=== PATIENT | female | born 1970 | race Caucasian/White ===

== ENCOUNTER 2016-04-20 09:22 | Outpatient (RCR) | payer MEDICARE, BC ==
[2016-04-20 09:20] VITALS: BP 116/75
[~2016-04-20 09:22] MED LIST: EFFEXOR XR150 M1 PO; EFFEXOR XR75 M2 PO; LANSOPRAZOLE30 MG PO; PLAVIX 75MG TAB75 MG PO; PROPRANOLOL HYD20 MG PO; SYNTHROID137 MCG PO
[2016-04-20 11:50] VITALS: BP 117/83
[2016-05-18 10:00] VITALS: BP 107/64
[2016-05-18 12:41] VITALS: BP 120/75
[2016-06-15 09:50] VITALS: BP 118/81
[2016-06-15 12:40] VITALS: BP 127/89
[2016-07-13 08:45] VITALS: BP 111/73
[2016-07-13 12:10] VITALS: BP 116/77
== END 2016-07-19 | disposition home or self-care (01) ==
LOC: AMSURD 09:22
DX: M05.79 Rheumatoid arthritis with rheumatoid factor of multiple sites without organ or systems involvement (principal); M65.9 Synovitis and tenosynovitis, unspecified
CPT/HCPCS: J1745; J7050

== ENCOUNTER → 2016-07-13 | Outpatient (CLI) | payer MEDICARE, BC ==
[2016-06-15 12:40] VITALS: BP 127/89
== END ==
LOC: LAB 08:21
DX: M06.89 Other specified rheumatoid arthritis, multiple sites (principal); E03.4 Atrophy of thyroid (acquired); G43.909 Migraine, unspecified, not intractable, without status migrainosus; G47.33 Obstructive sleep apnea (adult) (pediatric); I48.91 Unspecified atrial fibrillation; E55.9 Vitamin D deficiency, unspecified; E11.9 Type 2 diabetes mellitus without complications

== ENCOUNTER 2016-08-10 09:55 | Outpatient (RCR) | payer MEDICARE, BC ==
[~2016-08-10] VITALS: Ht 154.9 cm; Wt 70.5 kg
[2016-08-10 10:05] VITALS: BP 124/85
[2016-08-10 12:15] VITALS: BP 120/87
[2016-09-14 09:45] VITALS: BP 117/67
[2016-09-14 12:14] VITALS: BP 119/80
[2016-10-12 10:00] VITALS: BP 118/79
[2016-10-12 12:06] VITALS: BP 148/93
== END 2016-11-08 | disposition home or self-care (01) ==
LOC: AMSURD
DX: M05.79 Rheumatoid arthritis with rheumatoid factor of multiple sites without organ or systems involvement (principal); M65.9 Synovitis and tenosynovitis, unspecified
CPT/HCPCS: J1745; J7050

== ENCOUNTER → 2016-08-24 | Outpatient (CLI) | payer MEDICARE, BC | LOC: LAB 10:21 | DX: E03.4 Atrophy of thyroid (acquired) (principal); M06.89 Other specified rheumatoid arthritis, multiple sites; G43.909 Migraine, unspecified, not intractable, without status migrainosus; G47.33 Obstructive sleep apnea (adult) (pediatric) ==

== ENCOUNTER → 2016-10-23 | Outpatient (CLI) | payer MEDICARE, BC ==
[2016-10-12 12:06] VITALS: BP 148/93
== END ==
LOC: RAD 10:42 → LAB 10:42
DX: R10.9 Unspecified abdominal pain (principal); R10.11 Right upper quadrant pain

== ENCOUNTER 2016-11-16 09:55 | Outpatient (RCR) | payer MEDICARE, BC ==
[~2016-11-16] VITALS: Ht 154.9 cm; Wt 70.5 kg
[2016-11-16 10:05] VITALS: BP 118/95
[2016-11-16 12:20] VITALS: BP 117/85
[2016-12-14 10:48] VITALS: BP 126/80
[2016-12-14 13:00] VITALS: BP 121/90
[2017-01-11 10:56] VITALS: BP 111/83
[2017-01-11 12:44] VITALS: BP 113/78
[2017-02-08 09:58] VITALS: BP 110/81
[2017-02-08 12:42] VITALS: BP 123/81
== END 2017-02-14 | disposition home or self-care (01) ==
LOC: AMSURD
DX: M05.79 Rheumatoid arthritis with rheumatoid factor of multiple sites without organ or systems involvement (principal); M65.9 Synovitis and tenosynovitis, unspecified
CPT/HCPCS: J1745; J7050; Q5102-ZB

== ENCOUNTER → 2016-12-14 | Outpatient (CLI) | payer MEDICARE, BC ==
[2016-11-16 12:20] VITALS: BP 117/85
== END ==
LOC: LAB 09:57
DX: E03.4 Atrophy of thyroid (acquired) (principal)

== ENCOUNTER 2017-03-08 12:24 | Outpatient (RCR) | payer MEDICARE, BC ==
[~2017-03-08] VITALS: Ht 154.9 cm; Wt 70.5 kg
[2017-03-08 13:04] VITALS: BP 130/80
[2017-04-05 10:13] VITALS: BP 127/96
[2017-04-05 12:01] VITALS: BP 122/83
[2017-05-03 11:02] VITALS: BP 112/73
[2017-05-03 11:05] VITALS: BP 134/92
[2017-05-31 10:22] VITALS: BP 128/81
[2017-05-31 12:20] VITALS: BP 119/87
== END 2017-06-06 | disposition home or self-care (01) ==
LOC: AMSURD
DX: M05.79 Rheumatoid arthritis with rheumatoid factor of multiple sites without organ or systems involvement (principal); M65.9 Synovitis and tenosynovitis, unspecified
CPT/HCPCS: J1644; J7050; Q5102-ZB

== ENCOUNTER → 2017-10-25 | Outpatient (CLI) | payer MEDICARE, BC ==
[~2017-10-25] VITALS: Ht 160 cm; Wt 65.9 kg
[~2017-10-25] MED LIST changes: +LEVOTHYROXINE175 MCG PO; +LOPRESSOR 225 MG/TAB PO
[2017-10-25 15:14] LABS: EOS % 0.5 % (1.0-5.0); HEMATOCRIT 43.9 % (37.0-47.0); HEMOGLOBIN 14.2 g/dL (12.5-16.0); MEAN CELL VOLUME 93 fl (78-100); MEAN CORPUSCULAR HEMOGLOBIN 30 pg (27-31); MEAN CORPUSCULAR HGB CONC 32 g/dL (33-37); MEAN PLATELET VOLUME 10.1 fl (7.4-10.4); MONO # 0.7 (0.20-0.80); NEU # 4.9 (1.40-6.50); PLATELET COUNT 312 K/mm3 (130-400); RED BLOOD COUNT 4.73 M/mm3 (4.10-5.30); RED CELL DISTRIBUTION WIDTH 12.8 % (11.5-14.5); WHITE BLOOD COUNT 7.6 K/mm3 (4.8-10.8)
[2017-10-25 15:27] LABS: ALBUMIN 4.2 g/dL (3.5-5.0); BUN/CREATININE RATIO 15.9 (6.0-26.0); CALCIUM 8.8 mg/dL (8.4-10.2); POTASSIUM 3.8 mmol/L (3.6-5.0); TOTAL BILIRUBIN 0.2 mg/dL (0.2-1.3); TOTAL PROTEIN 7.9 g/dL (6.3-8.2)
[2017-10-25 15:36] VITALS: BP 120/84
[2017-10-25 16:15] LABS: PH-URINE 5.5 (5.0 - 8.0); URINE APPEARANCE HAZY; URINE BILIRUBIN NEGATIVE (NEGATIVE); URINE BLOOD NEGATIVE (NEGATIVE); URINE COLOR YELLOW; URINE GLUCOSE NEGATIVE (NEGATIVE); URINE KETONE NEGATIVE (NEGATIVE); URINE LEUKOCYTE ESTERASE NEGATIVE (NEGATIVE); URINE NITRATE NEGATIVE (NEGATIVE); URINE PROTEIN(semi-quant) NEGATIVE (NEGATIVE); URINE UROBILINOGEN NORMAL (NORMAL); URINE WBC 0-1 /hpf (0-3)
== END ==
LOC: AMSURD 14:57
PROVIDERS: Internal Medicine
DX: Z01.812 Encounter for preprocedural laboratory examination (principal); K04.7 Periapical abscess without sinus; Z51.81 Encounter for therapeutic drug level monitoring; E03.4 Atrophy of thyroid (acquired)

== ENCOUNTER → 2018-09-08 | Outpatient (CLI) | payer MEDICARE, BC ==
[2017-10-25 15:36] VITALS: BP 120/84
[2018-09-08 16:57] LABS: EOS # 0.1 (0.04-0.40); EOS % 1.6 % (1.0-5.0); HEMATOCRIT 40.1 % (37.0-47.0); HEMOGLOBIN 12.9 g/dL (12.5-16.0); LYMPH# 2.2 (1.50-4.00); MEAN CELL VOLUME 91 fl (78-100); MEAN CORPUSCULAR HEMOGLOBIN 29 pg (27-31); MEAN CORPUSCULAR HGB CONC 32 g/dL (33-37); MEAN PLATELET VOLUME 9.3 fl (7.4-10.4); MONO # 0.8 (0.20-0.80); NEU # 5.7 (1.40-6.50); PLATELET COUNT 356 K/mm3 (130-400)
[2018-09-08 17:33] LABS: ALBUMIN 4.1 g/dL (3.5-5.0); CALCIUM 8.8 mg/dL (8.4-10.2); POTASSIUM 3.5 mmol/L (3.6-5.0); TOTAL BILIRUBIN 0.2 mg/dL (0.2-1.3)
== END ==
LOC: RAD 16:37
PROVIDERS: Internal Medicine
DX: G93.89 Other specified disorders of brain (principal); R55 Syncope and collapse; E03.9 Hypothyroidism, unspecified; M06.9 Rheumatoid arthritis, unspecified; I69.359 Hemiplegia and hemiparesis following cerebral infarction affecting unspecified side; G43.909 Migraine, unspecified, not intractable, without status migrainosus
CPT/HCPCS: A9585

== ENCOUNTER → 2019-01-02 | Outpatient (CLI) | payer MEDICARE, BC ==
[2017-10-25 15:36] VITALS: BP 120/84
== END ==
LOC: LAB 08:22
DX: E03.9 Hypothyroidism, unspecified (principal)

== ENCOUNTER → 2020-03-11 | Outpatient (CLI) | payer MEDICARE, BC ==
[2017-10-25 15:36] VITALS: BP 120/84
== END ==
LOC: LAB 07:18
DX: M79.10 Myalgia, unspecified site (principal); R19.7 Diarrhea, unspecified; R11.0 Nausea; Z20.828 Contact with and (suspected) exposure to other viral communicable diseases

== ENCOUNTER → 2020-03-21 | Outpatient (CLI) | payer MEDICARE, BC ==
[2017-10-25 15:36] VITALS: BP 120/84
[2020-03-21 15:20] LABS: EOS # 0.1 (0.04-0.40); EOS % 2.1 % (1.0-5.0); HEMATOCRIT 40.5 % (37.0-47.0); LYMPH# 2.2 (1.50-4.00); MEAN CELL VOLUME 92 fl (78-100); MEAN CORPUSCULAR HEMOGLOBIN 30 pg (27-31); MEAN CORPUSCULAR HGB CONC 32 g/dL (33-37); MEAN PLATELET VOLUME 9.4 fl (7.4-10.4); MONO # 0.6 (0.20-0.80); NEU # 3.2 (1.40-6.50); PLATELET COUNT 284 K/mm3 (130-400); RED BLOOD COUNT 4.41 M/mm3 (4.10-5.30); RED CELL DISTRIBUTION WIDTH 13.8 % (11.5-14.5); WHITE BLOOD COUNT 6.2 K/mm3 (4.8-10.8)
[2020-03-21 15:30] LABS: ALBUMIN 3.8 g/dL (3.5-5.0); POTASSIUM 3.5 mmol/L (3.5-5.1)
[2020-03-21 15:31] LABS: CALCIUM 8.1 mg/dL (8.3-10.5)
[2020-03-21 15:33] LABS: TOTAL PROTEIN 6.5 g/dL (6.4-8.3)
[2020-03-21 15:35] LABS: TOTAL BILIRUBIN 0.1 mg/dL (0.2-1.2)
[2020-03-21 15:39] LABS: MAGNESIUM 1.8 mg/dL (1.60-2.60)
== END ==
LOC: LAB 15:07
PROVIDERS: Internal Medicine
DX: M70.61 Trochanteric bursitis, right hip (principal); M06.9 Rheumatoid arthritis, unspecified; E03.9 Hypothyroidism, unspecified; G43.909 Migraine, unspecified, not intractable, without status migrainosus; G47.33 Obstructive sleep apnea (adult) (pediatric)

== ENCOUNTER → 2020-03-28 | Outpatient (CLI) | payer MEDICARE, BC ==
[2017-10-25 15:36] VITALS: BP 120/84
== END ==
LOC: LAB 08:45
DX: I48.91 Unspecified atrial fibrillation (principal); G40.909 Epilepsy, unspecified, not intractable, without status epilepticus; M06.09 Rheumatoid arthritis without rheumatoid factor, multiple sites; R19.7 Diarrhea, unspecified

== ENCOUNTER → 2020-05-20 | Outpatient (CLI) | payer MEDICARE, BC ==
[2017-10-25 15:36] VITALS: BP 120/84
[2020-05-20 12:50] LABS: EOS # 0.1 (0.04-0.40); HEMATOCRIT 42.8 % (37.0-47.0); HEMOGLOBIN 13.7 g/dL (12.5-16.0); MEAN CELL VOLUME 94 fl (78-100); MEAN CORPUSCULAR HEMOGLOBIN 30 pg (27-31); MEAN CORPUSCULAR HGB CONC 32 g/dL (33-37); MEAN PLATELET VOLUME 9.5 fl (7.4-10.4); MONO # 0.5 (0.20-0.80); NEU # 3.6 (1.40-6.50); PLATELET COUNT 293 K/mm3 (130-400); RED BLOOD COUNT 4.57 M/mm3 (4.10-5.30); RED CELL DISTRIBUTION WIDTH 13.4 % (11.5-14.5); WHITE BLOOD COUNT 6.1 K/mm3 (4.8-10.8)
[2020-05-20 12:58] LABS: ALBUMIN 4.4 g/dL (3.5-5.0); POTASSIUM 3.7 mmol/L (3.5-5.1)
[2020-05-20 12:59] LABS: CALCIUM 8.7 mg/dL (8.3-10.5)
[2020-05-20 13:01] LABS: TOTAL PROTEIN 7.1 g/dL (6.4-8.3)
[2020-05-20 13:03] LABS: TOTAL BILIRUBIN 0.3 mg/dL (0.2-1.2)
[2020-05-20 13:07] LABS: MAGNESIUM 2.06 mg/dL (1.60-2.60)
[2020-05-20 13:08] LABS: URINE APPEARANCE HAZY; URINE BILIRUBIN NEGATIVE (NEGATIVE); URINE BLOOD NEGATIVE (NEGATIVE); URINE COLOR YELLOW; URINE GLUCOSE NEGATIVE (NEGATIVE); URINE KETONE NEGATIVE (NEGATIVE); URINE LEUKOCYTE ESTERASE NEGATIVE (NEGATIVE); URINE NITRATE NEGATIVE (NEGATIVE); URINE PROTEIN(semi-quant) TRACE mg/dL (NEGATIVE); URINE UROBILINOGEN NORMAL (NORMAL)
[2020-05-20 13:47] LABS: ERYTHROCYTE SEDIMENTATION RATE 5 mm/hr (0-20)
== END ==
LOC: LAB 12:21
PROVIDERS: Internal Medicine
DX: M06.89 Other specified rheumatoid arthritis, multiple sites (principal); K90.9 Intestinal malabsorption, unspecified

== ENCOUNTER → 2020-10-18 | Outpatient (CLI) | payer MEDICARE, BC ==
[2017-10-25 15:36] VITALS: BP 120/84
[~2020-10-18] MED LIST changes: +CLOPIDOGREL PO; +COMBIVENT RESPI1 SPR IH; +EPITOL200 MG PO; +FLOVENT DI250 MCG/Ac IH; -LEVOTHYROXINE175 MCG PO; -LOPRESSOR 225 MG/TAB PO; +MEDROL DOSEPAK4 MG PO; +METOPROLOL SUCC50 M1 PO; +METROGEL0.751 VG; +PHENERGAN 25 TA25 MG PO; -PLAVIX 75MG TAB75 MG PO; +PROAIR HFA0.09 MG/AC IH; +PULMICORT180 MCG/Ac IH; +RITUXAN 10100 MG/10; +SYNTHROID0.2 MG PO; +TYLENOL EXTRA500 M2 PO
== END ==
LOC: MAMMO 08-10 13:00
DX: Z12.31 Encounter for screening mammogram for malignant neoplasm of breast (principal); Z98.82 Breast implant status

== ENCOUNTER → 2020-11-11 | Outpatient (CLI) | payer MEDICARE, BC ==
[2017-10-25 15:36] VITALS: BP 120/84
== END ==
LOC: LAB 08:14
DX: E03.4 Atrophy of thyroid (acquired) (principal)

== ENCOUNTER → 2020-12-09 | Outpatient (CLI) | payer MEDICARE, BC | LOC: LAB 08:55 | DX: E03.4 Atrophy of thyroid (acquired) (principal) ==

== ENCOUNTER → 2020-12-28 | Outpatient (CLI) | payer MEDICARE, BC | LOC: LAB 11:55 | DX: U07.1 COVID-19 (principal); R05 Cough; M54.5 Low back pain ==

== ENCOUNTER → 2021-01-20 | Outpatient (CLI) | payer MEDICARE, BC | LOC: LAB 08:04 | DX: E03.4 Atrophy of thyroid (acquired) (principal) ==

== ENCOUNTER → 2021-03-31 | Outpatient (CLI) | payer MEDICARE, BC ==
[2021-03-31 12:10] LABS: BASO # 0.02 K/mm3 (0.02-0.10); EOS # 0.08 K/mm3 (0.04-0.40); EOS % 1.2 % (1.0-5.0); HEMATOCRIT 41.9 % (37.0-47.0); HEMOGLOBIN 13.4 g/dL (12.5-16.0); LYMPH# 1.65 K/mm3 (1.50-4.00); MEAN CELL VOLUME 96 fl (78-100); MEAN CORPUSCULAR HEMOGLOBIN 31 pg (27-31); MEAN CORPUSCULAR HGB CONC 32 g/dL (33-37); MEAN PLATELET VOLUME 8.9 fl (7.4-10.4); MONO # 0.46 K/mm3 (0.20-0.80); NEU # 4.64 K/mm3 (1.40-6.50); PLATELET COUNT 306 K/mm3 (130-400); RED BLOOD COUNT 4.36 M/mm3 (4.10-5.30); RED CELL DISTRIBUTION WIDTH 13.1 % (11.5-14.5); WHITE BLOOD COUNT 6.9 K/mm3 (4.8-10.8)
[2021-03-31 12:21] LABS: CALCIUM 9.1 mg/dL (8.3-10.5)
[2021-03-31 12:22] LABS: TOTAL PROTEIN 7.1 g/dL (6.4-8.3)
[2021-03-31 12:24] LABS: TOTAL BILIRUBIN 0.2 mg/dL (0.2-1.2)
[2021-03-31 13:28] LABS: ERYTHROCYTE SEDIMENTATION RATE 4 mm/hr (0-20)
== END ==
LOC: LAB 11:54
PROVIDERS: Internal Medicine
DX: K90.9 Intestinal malabsorption, unspecified (principal); M06.89 Other specified rheumatoid arthritis, multiple sites; E03.4 Atrophy of thyroid (acquired)

== ENCOUNTER 2021-05-12 08:31 | Emergency (ER) | payer MEDICARE, BC ==
[~2021-05-12 08:31] MED LIST changes: -COMBIVENT RESPI1 SPR IH; -EPITOL200 MG PO; -FLOVENT DI250 MCG/Ac IH; -MEDROL DOSEPAK4 MG PO; -METROGEL0.751 VG; -PHENERGAN 25 TA25 MG PO; -PROAIR HFA0.09 MG/AC IH; -PULMICORT180 MCG/Ac IH; -RITUXAN 10100 MG/10; -TYLENOL EXTRA500 M2 PO
[2021-05-12] MEDS ORDERED: TYLENOL EXTRA500 M2 PO (08:58)
[2021-05-12] MEDS ORDERED: PROAIR HFA0.09 MG/AC IH (08:59)
[2021-05-12] MEDS ORDERED: EPITOL200 MG PO (08:59)
[2021-05-12] MEDS ORDERED: FLOVENT DI250 MCG/Ac IH (09:00)
[2021-05-12] MEDS ORDERED: PHENERGAN 25 TA25 MG PO (09:03)
[2021-05-12] MEDS ORDERED: RITUXAN 10100 MG/10 (09:04)
[2021-05-12 09:29] LABS: BASO # 0.03 K/mm3 (0.02-0.10); EOS # 0.32 K/mm3 (0.04-0.40); EOS % 3.6 % (1.0-5.0); HEMATOCRIT 42.7 % (37.0-47.0); HEMOGLOBIN 13.8 g/dL (12.5-16.0); MEAN CELL VOLUME 93 fl (78-100); MEAN CORPUSCULAR HEMOGLOBIN 30 pg (27-31); MEAN CORPUSCULAR HGB CONC 32 g/dL (33-37); MEAN PLATELET VOLUME 8.8 fl (7.4-10.4); MONO # 0.41 K/mm3 (0.20-0.80); NEU # 6.04 K/mm3 (1.40-6.50); PLATELET COUNT 353 K/mm3 (130-400); RED BLOOD COUNT 4.57 M/mm3 (4.10-5.30); RED CELL DISTRIBUTION WIDTH 12.5 % (11.5-14.5); WHITE BLOOD COUNT 8.8 K/mm3 (4.8-10.8)
[2021-05-12 09:41] LABS: POTASSIUM 3.1 mmol/L (3.5-5.1)
[2021-05-12 09:43] LABS: CALCIUM 8.7 mg/dL (8.3-10.5)
[2021-05-12 09:44] LABS: TOTAL PROTEIN 6.9 g/dL (6.4-8.3)
[2021-05-12 09:46] LABS: TOTAL BILIRUBIN 0.2 mg/dL (0.2-1.2)
[2021-05-12] MEDS ORDERED: COMBIVENT RESPI1 SPR IH (10:27)
[2021-05-12] MEDS ORDERED: MEDROL DOSEPAK4 MG PO (10:27)
[2021-05-12] MEDS ORDERED: PULMICORT180 MCG/Ac IH (10:27)
[2021-05-12] MEDS ORDERED: METROGEL0.751 VG (10:45)
[2021-05-12 10:48] VITALS: BP 121/90
== END 2021-05-12 10:49 | disposition home or self-care (01) ==
LOC: ED 08:31
PROVIDERS: Nurse Practitioner Family
DX: J45.901 Unspecified asthma with (acute) exacerbation (principal); E03.9 Hypothyroidism, unspecified; Z79.890 Hormone replacement therapy
CPT/HCPCS: Q9967

== ENCOUNTER → 2021-06-23 | Outpatient (CLI) | payer MEDICARE, BC ==
[~2021-06-23] MED LIST changes: +COMBIVENT RESPI1 SPR IH; +EPITOL200 MG PO; +FLOVENT DI250 MCG/Ac IH; +MEDROL DOSEPAK4 MG PO; +METROGEL0.751 VG; +PHENERGAN 25 TA25 MG PO; +PROAIR HFA0.09 MG/AC IH; +PULMICORT180 MCG/Ac IH; +RITUXAN 10100 MG/10; +TYLENOL EXTRA500 M2 PO
== END ==
LOC: LAB 13:07
DX: Z20.822 Contact with and (suspected) exposure to COVID-19 (principal)

== ENCOUNTER → 2021-10-13 | Outpatient (CLI) | payer MEDICARE, BC | LOC: LAB 08:48 | DX: K90.9 Intestinal malabsorption, unspecified (principal); E03.4 Atrophy of thyroid (acquired); M06.89 Other specified rheumatoid arthritis, multiple sites; N76.0 Acute vaginitis; F32.1 Major depressive disorder, single episode, moderate; G25.81 Restless legs syndrome ==

== ENCOUNTER → 2023-03-26 | Outpatient (CLI) | payer OTHER | LOC: RAD 13:04 | DX: R10.84 Generalized abdominal pain (principal); Z90.49 Acquired absence of other specified parts of digestive tract | CPT/HCPCS: Q9967 ==

== ENCOUNTER → 2023-11-29 | Outpatient (CLI) | payer OTHER ==
[2023-11-29 13:49] LABS: BASO # 0.02 K/mm3 (0.02-0.10); HEMATOCRIT 41.2 % (37.0-47.0); HEMOGLOBIN 13.7 g/dL (12.5-16.0); LYMPH# 2.46 K/mm3 (1.50-4.00); MEAN CELL VOLUME 92 fl (78-100); MEAN CORPUSCULAR HEMOGLOBIN 31 pg (27-31); MEAN CORPUSCULAR HGB CONC 33 g/dL (33-37); MEAN PLATELET VOLUME 8.6 fl (7.4-10.4); MONO # 0.44 K/mm3 (0.20-0.80); NEU # 5.09 K/mm3 (1.40-6.50); PLATELET COUNT 287 K/mm3 (130-400); RED BLOOD COUNT 4.48 M/mm3 (4.10-5.30); RED CELL DISTRIBUTION WIDTH 12.9 % (11.5-14.5)
[2023-11-29 14:11] LABS: ALBUMIN 4.3 g/dL (3.5-5.0)
[2023-11-29 14:12] LABS: CALCIUM 9.1 mg/dL (8.3-10.5)
[2023-11-29 14:13] LABS: TOTAL PROTEIN 6.5 g/dL (6.4-8.3)
[2023-11-29 14:15] LABS: TOTAL BILIRUBIN 0.2 mg/dL (0.2-1.2)
== END ==
LOC: LAB 13:28
PROVIDERS: Internal Medicine
DX: Z00.00 Encounter for general adult medical examination without abnormal findings (principal)